=== PATIENT | male | born 1995 | race African-American/Black ===

== ENCOUNTER 2024-06-16 11:00 | Emergency (ER) | payer OTHER ==
[~2024-06-16] VITALS: Ht 185.4 cm; Wt 88.6 kg
[2024-06-16 11:04] VITALS: TEMP 98.1
[2024-06-16] MEDS: IBUPROFEN 600 MG TABLET PO ONE (11:44)
[2024-06-16] MEDS: HYDROCODONE/ACETAMINOPHEN 5-325 MG TABLET PO ONE (11:44)
[2024-06-16 13:00] VITALS: BP 122/70; PULSE 70; RESP 18; O2SAT 98
[2024-06-16] MEDS ORDERED: HYDR-4072 PO ×2 (13:40→20:23)
== END 2024-06-16 14:41 | disposition home or self-care (01) ==
LOC: EMS 11:03
DX: R68.84 Jaw pain (principal); Y08.89XA Assault by other specified means, initial encounter; Y93.89 Activity, other specified; Y92.89 Other specified places as the place of occurrence of the external cause; Y99.8 Other external cause status
CPT/HCPCS: 70486; 99284; Z7502; Z7610